=== PATIENT | male | born 1955 | race Caucasian/White ===

== ENCOUNTER 2017-10-01 17:49 | Emergency (ER) | payer MEDICAID, OTHER ==
[~2017-10-01] VITALS: Ht 177.8 cm; Wt 113.4 kg
[2017-10-01 19:04] VITALS: Ht 177.8 cm; Wt 113.4 kg
[2017-10-01 21:17] LABS: BASOPHIL % 0.4 % (0-2); PLATELET COUNT 234 x10^3mcL (130-400)
[2017-10-01 21:18] LABS: RED CELL DISTRIBUTION WIDTH 15.2 % (11.5-14.5)
[2017-10-01 21:43] LABS: CALCIUM 8.7 mg/dL (8.5-10.1); CARBON DIOXIDE 24.3 mmol/L (21-32); CHLORIDE SERUM 110 mmol/L (98-107); CREATININE SERUM 1.2 mg/dL (0.7-1.3); GFR1 > 60 mL/min; GLUCOSE SERUM 98 mg/dL (74-106); LIPASE 224 IU/L (73-393); SODIUM SERUM 148 mmol/L (136-145)
[2017-10-01 23:32] VITALS: BP 109/64
== END 2017-10-02 01:28 | disposition home or self-care (01) ==
LOC: ED 17:49 → EDBD 17:49 → ED 10-02 01:28
PROVIDERS: Specialist
DX: F10.129 Alcohol abuse with intoxication, unspecified (principal); G89.29 Other chronic pain; M54.9 Dorsalgia, unspecified
CPT/HCPCS: 36415; G0480; J1630; J1885